=== PATIENT | female | born 1945 | race Caucasian/White ===

== ENCOUNTER → 2017-11-22 | Outpatient (CLI) | payer MEDICARE, OTHER ==
[~2017-11-22] MED LIST: ACET325T14 PO; ALBUTEROL INHALER PO; ALLO100T64 PO; ASCO1TAB4 PO; ASPI-496 PO; CALC-680 PO; CARV6.252 PO; CHLO473M PO; CHOL500015 PO; CHRO200T2 PO; FLAX1CAP PO; FOLI0.4T2 PO; HORSETAIL GRASS PO; HYDR25TA6 PO; LISI40TA PO; MONT10TA6 PO; NITR0.4T28 SL; OMNIPAQUE 350 MG/ML, 100ML BOTTLE ONE; PANT40TA5 PO; PRAV40TA2 PO; RANI150T4 PO; SELE200T17 PO; TURM500C4 PO; UBIQ100C3 PO; VITAMIN B12 PO; VITAMIN E PO
== END | disposition home or self-care (01) ==
LOC: RAD 12:38
PROVIDERS: ATTEND Thoracic Surgery (Cardiothoracic Vascular Surgery)
DX: I65.23 Occlusion and stenosis of bilateral carotid arteries (principal); Z95.1 Presence of aortocoronary bypass graft
CPT/HCPCS: 70496; 70498; Q9967

== ENCOUNTER 2017-11-24 03:57 | Inpatient (IN) | payer MEDICARE, OTHER ==
[2017-11-23 15:04] LABS: BASOPHILS # (AUTO) 0.01 x10^3/uL (0-0.1); BASOPHILS % (AUTO) 0 % (0-1); EOSINOPHILS # (AUTO) 0.11 x10^3/uL (0-0.4); EOSINOPHILS % (AUTO) 2 % (1-7); LYMPHOCYTES # (AUTO) 2.07 x10^3/uL (1-3.4); LYMPHOCYTES % (AUTO) 27 % (22-44); MD NO; MEAN CORPUSCULAR HEMOGLOBIN 34.4 pg (27.0-34.8); MEAN CORPUSCULAR HGB CONC 33.9 g/dL (32.4-35.8); MEAN CORPUSCULAR VOLUME 101.4 fL (80-100); MEAN PLATELET VOLUME 8.7 fL (7.4-10.4); MONOCYTES # (AUTO) 0.75 x10^3/uL (0.2-0.8); MONOCYTES % (AUTO) 10 % (2-9); NEUTROPHILS # (AUTO) 4.66 x10^3/uL (1.8-6.8); NEUTROPHILS % (AUTO) 61 % (42-75); PLATELET COUNT 234 x10^3/uL (130-400); RED BLOOD COUNT 4.61 x10^6/uL (3.82-5.3); RED CELL DISTRIBUTION WIDTH 13.5 % (9.6-15.2)
[2017-11-23 15:13] LABS: INTERNATIONAL NORMALIZED RATIO 1.04 (0.93-1.1); PROTHROMBIN TIME 10.7 Seconds (9.6-11.5)
[2017-11-23 15:21] LABS: ALANINE AMINOTRANSFERASE 28 U/L (12-78); ALBUMIN 3.9 g/dL (3.4-5.0); ANION GAP 9 mmol/L (5-15); CALCIUM 9.2 mg/dL (8.5-10.1); CHLORIDE 104 mmol/L (98-107); CREATININE 0.93 mg/dL (0.55-1.02)
[2017-11-23 15:21] LABS: MICROSCOPIC AUTO
[2017-11-23 15:23] LABS: ALKALINE PHOSPHATASE 82 U/L (45-117); BILIRUBIN,TOTAL 0.6 mg/dL (0.2-1.0); TOTAL PROTEIN 7.4 g/dL (6.4-8.2)
[2017-11-23 15:36] LABS: HEMOGLOBIN A1C 5.9 % (4.2-6.3)
[~2017-11-24] VITALS: Ht 160 cm; Wt 64.6 kg
[~2017-11-24 03:57] MED LIST changes: -OMNIPAQUE 350 MG/ML, 100ML BOTTLE ONE
[2017-11-24 04:11] VITALS: BP_SYST 151; BP_SYST 162; BP_DIAS 80; BP_DIAS 82
[2017-11-24] MEDS ORDERED: DO NOT GIVE MC SCH (04:30)
[2017-11-24] MEDS ORDERED: INSULIN LISPRO 100 UNITS/ML, PEN SQ-INSULIN SCH (04:30)
[2017-11-24] MEDS ORDERED: ACETAMINOPHEN 325 MG TABLET PO PRN ×2 (04:30→13:30)
[2017-11-24] MEDS ORDERED: CHLORHEXIDINE 15 ML BOTTLE MM SCH (04:30)
[2017-11-24] MEDS ORDERED: METOPROLOL TARTRATE 25 MG TABLET PO ONE (05:00)
[2017-11-24] MEDS ORDERED: PAPAVERINE 30 MG/ML, 2ML ONE (06:43)
[2017-11-24] MEDS ORDERED: HEPARIN 1,000 UNITS/ML, 10ML ONE (06:43)
[2017-11-24] MEDS ORDERED: MIDAZOLAM 10MG/2 ML ONE (07:20)
[2017-11-24] MEDS ORDERED: FENTANYL PF 250 MCG/5ML ONE ×5 (07:21→13:17)
[2017-11-24] MEDS ORDERED: VANCOMYCIN 700 MG in SODIUM CHLORIDE 0.9% 250 ML IV PRN (07:30)
[2017-11-24] MEDS ORDERED: ALBUMIN HUMAN 5% 500 ML IV PRN (07:30)
[2017-11-24] MEDS ORDERED: CEFUROXIME 1.5 GM in SODIUM CHLORIDE 0.9% 50 ML IVPB PRN (07:30)
[2017-11-24] MEDS ORDERED: REGULAR INSULIN 62.5 UNITS in SODIUM CHLORIDE 0.9% 249.375 ML IV PRN ×2 (07:30→13:22)
[2017-11-24] MEDS ORDERED: POTASSIUM CHLORIDE 80 MEQ, SODIUM BICARBONATE 8.4% 10 MEQ, MAGNESIUM SULFATE 0.5 GM, LI... IV PRN (07:30)
[2017-11-24] MEDS ORDERED: EPINEPHRINE 2 MG in SODIUM CHLORIDE 0.9% 248 ML IV SCH (07:30)
[2017-11-24] MEDS ORDERED: PHENYLEPHRINE 10 MG in SODIUM CHLORIDE 0.9% 249 ML IV PRN ×2 (07:30→13:22)
[2017-11-24] MEDS ORDERED: MANNITOL PMX 20% 500 ML IVPB PRN (07:30)
[2017-11-24] MEDS ORDERED: DEXMEDETOMIDINE 200 MCG in SODIUM CHLORIDE 0.9% 48 ML IV SCH (07:30)
[2017-11-24] MEDS ORDERED: HEPARIN 1,000 UNITS/ML, 10ML IV ONE (08:58)
[2017-11-24] MEDS ORDERED: PAPAVERINE 30 MG/ML, 2ML IVPush ONE (08:58)
[2017-11-24] MEDS ORDERED: SODIUM CHLORIDE FLUSH 10ML SYR IVF SCH (09:00)
[2017-11-24] MEDS: DOCUSATE 100 MG CAPSULE PO SCH ×2 (09:00→19:52)
[2017-11-24] MEDS ORDERED: MUPIROCIN OINT 2%, 22GM TP SCH (09:00)
[2017-11-24] MEDS ORDERED: EPINEPHRINE 1 MG/ML, 1ML ONE (10:48)
[2017-11-24] MEDS ORDERED: ROCURONIUM 10 MG/ML,10ML ONE (10:48)
[2017-11-24] MEDS ORDERED: PROPOFOL 10 MG/ML, 20ML ONE (10:48)
[2017-11-24] MEDS ORDERED: PHENYLEPHRINE 10 MG/ML ONE (10:49)
[2017-11-24] MEDS ORDERED: NITROGLYCERIN/D5W PMX 250 ML ONE (11:34)
[2017-11-24] MEDS ORDERED: SODIUM CHLORIDE 0.9% 1,000 ML IV PRN (13:22)
[2017-11-24] MEDS ORDERED: DEXMEDETOMIDINE 200 MCG in SODIUM CHLORIDE 0.9% 48 ML IV PRN (13:22)
[2017-11-24] MEDS ORDERED: NITROGLYCERIN/D5W PMX 240 ML IV PRN (13:22)
[2017-11-24] MEDS ORDERED: DOBUTAMINE 250 MG in SODIUM CHLORIDE 0.9% 230 ML IV PRN (13:22)
[2017-11-24] MEDS ORDERED: SODIUM BICARB 8.4%, 50ML SYRINGE IV PRN (13:30)
[2017-11-24] MEDS ORDERED: GLUCAGON 1 MG IM PRN (13:30)
[2017-11-24] MEDS ORDERED: EPINEPHRINE 2 MG in SODIUM CHLORIDE 0.9% 248 ML IV PRN (13:30)
[2017-11-24] MEDS: KSCALE TO 4.5 IV SCH ×2 (13:30→19:30)
[2017-11-24] MEDS ORDERED: MAGNESIUM SULFATE 1 GM in SODIUM CHLORIDE 0.9% 50 ML IVPB SCH (13:30)
[2017-11-24] MEDS ORDERED: BISACODYL 5 MG EC TABLET PO PRN (13:30)
[2017-11-24] MEDS ORDERED: PROCHLORPERAZINE 5 MG/ML, 2ML IVPush PRN (13:30)
[2017-11-24] MEDS ORDERED: MIDAZOLAM 1 MG/ML, 5ML IVPush PRN (13:30)
[2017-11-24] MEDS ORDERED: INSULIN REGULAR 100 UNITS/ML, 3ML VIAL IVPush PRN (13:30)
[2017-11-24] MEDS: CHLORHEXIDINE 15 ML BOTTLE MM SCH (13:30)
[2017-11-24] MEDS ORDERED: ACETAMINOPHEN 650 MG SUPP PR PRN (13:30)
[2017-11-24] MEDS ORDERED: DEXTROSE 4 GM TAB.CHEW PO PRN (13:30)
[2017-11-24] MEDS ORDERED: BISACODYL 10 MG SUPP PR PRN (13:30)
[2017-11-24] MEDS ORDERED: DEXTROSE 50%, 50ML SYRINGE IVPush PRN (13:30)
[2017-11-24] MEDS ORDERED: morphine SULFATE 10 MG/ML, 1ML IVPush PRN (13:30)
[2017-11-24] MEDS ORDERED: SODIUM BICARB 8.4%, 50ML SYRINGE ONE (13:46)
[2017-11-24] MEDS ORDERED: LIDOCAINE 2% 100MG/5ML SYRINGE ONE (13:47)
[2017-11-24] MEDS ORDERED: ALBUMIN HUMAN 25% 50 ML ONE (13:47)
[2017-11-24] MEDS ORDERED: CALCIUM CHLORIDE 10%, 10ML SYR ONE (13:47)
[2017-11-24] MEDS ORDERED: HEPARIN 1,000 UNITS/ML, 30ML ONE (13:47)
[2017-11-24] MEDS ORDERED: MANNITOL 0.25 GM/ML, 50ML ONE (13:47)
[2017-11-24 14:02] LABS: GLUCOSE BY BLOOD GAS ANALYZER 82 mg/dL (70-110); HEMOGLOBIN BY BLOOD GAS ANALYZ 12.5 g/dL (14.0-18.0); POTASSIUM BY BLOOD GAS ANALYZR 2.9 mmol/L (3.6-5.5)
[2017-11-24] MEDS: LACTATED RINGERS 1,000 ML IV PRN ×4 (14:19→16:52)
[2017-11-24] MEDS ORDERED: POTASSIUM CHLORIDE 30 MEQ in SODIUM CHLORIDE 0.9% 100 ML IV ONE (15:00)
[2017-11-24] MEDS: INSULIN LISPRO 100 UNITS/ML, PEN SQ-INSULIN SCH ×2 (15:10→19:54)
[2017-11-24] MEDS ORDERED: DEXMEDETOMIDINE 400 MCG in SODIUM CHLORIDE 0.9% 96 ML IV PRN (15:41)
[2017-11-24] MEDS ORDERED: CALCIUM CHLORIDE 13.6 MEQ in SODIUM CHLORIDE 0.9% 100 ML IV ONE (16:30)
[2017-11-24] MEDS ORDERED: VANCOMYCIN 700 MG in SODIUM CHLORIDE 0.9% 250 ML IVPB SCH (19:00)
[2017-11-24] MEDS: CEFUROXIME 1.5 GM in SODIUM CHLORIDE 0.9% 50 ML IVPB SCH (19:50)
[2017-11-24] MEDS: VANCOMYCIN 700 MG in SODIUM CHLORIDE 0.9% 100 ML IVPB SCH (19:50)
[2017-11-24] MEDS: SODIUM CHLORIDE FLUSH 10ML SYR IVF SCH (19:54)
[2017-11-24] MEDS: MUPIROCIN OINT 2%, 22GM NAS SCH (19:54)
[2017-11-24] MEDS ORDERED: POTASSIUM CHLORIDE PMX 100 ML IV ONE (20:00)
[2017-11-24] MEDS: HYDROcodone/APAP 5/325 TABLET PO PRN (21:10)
[2017-11-24] MEDS: OXYcodone IR 5MG TABLET PO PRN (22:37)
[2017-11-24] MEDS ORDERED: MIDAZOLAM 1 MG/ML, 2ML ONE (22:45)
[2017-11-25] MEDS: CHLORHEXIDINE 15 ML BOTTLE MM SCH ×3 (01:01→23:30)
[2017-11-25 01:16] LABS: INTERNATIONAL NORMALIZED RATIO 1.03 (0.93-1.1); PROTHROMBIN TIME 10.6 Seconds (9.6-11.5)
[2017-11-25 01:18] LABS: ALBUMIN 2.6 g/dL (3.4-5.0); ANION GAP 11 mmol/L (5-15); CALCIUM 7.8 mg/dL (8.5-10.1); CHLORIDE 116 mmol/L (98-107); CREATININE 0.75 mg/dL (0.55-1.02)
[2017-11-25 01:29] LABS: BASOPHILS # (AUTO) 0.02 x10^3/uL (0-0.1); BASOPHILS % (AUTO) 0 % (0-1); EOSINOPHILS % (AUTO) 0 % (1-7); LYMPHOCYTES # (AUTO) 0.88 x10^3/uL (1-3.4); LYMPHOCYTES % (AUTO) 6 % (22-44); MD NO; MEAN CORPUSCULAR HEMOGLOBIN 33.2 pg (27.0-34.8); MEAN CORPUSCULAR HGB CONC 34.1 g/dL (32.4-35.8); MEAN CORPUSCULAR VOLUME 97.4 fL (80-100); MEAN PLATELET VOLUME 8.5 fL (7.4-10.4); MONOCYTES # (AUTO) 1.12 x10^3/uL (0.2-0.8); MONOCYTES % (AUTO) 8 % (2-9); NEUTROPHILS # (AUTO) 12.61 x10^3/uL (1.8-6.8); NEUTROPHILS % (AUTO) 86 % (42-75); PLATELET COUNT 187 x10^3/uL (130-400); RED BLOOD COUNT 3.94 x10^6/uL (3.82-5.3); RED CELL DISTRIBUTION WIDTH 15.7 % (9.6-15.2)
[2017-11-25] MEDS: KSCALE TO 4.5 IV SCH ×2 (01:30→07:30)
[2017-11-25] MEDS ORDERED: POTASSIUM CHLORIDE PMX 100 ML IV ONE ×2 (02:00→10:00)
[2017-11-25] MEDS: HYDROcodone/APAP 5/325 TABLET PO PRN ×3 (02:05→21:05)
[2017-11-25 04:00] VITALS: BP 110/45
[2017-11-25] MEDS: OXYcodone IR 5MG TABLET PO PRN (04:34)
[2017-11-25] MEDS: CEFUROXIME 1.5 GM in SODIUM CHLORIDE 0.9% 50 ML IVPB SCH (07:32)
[2017-11-25] MEDS: VANCOMYCIN 700 MG in SODIUM CHLORIDE 0.9% 100 ML IVPB SCH (07:32)
[2017-11-25] MEDS: METOPROLOL TARTRATE 25 MG TABLET PO/NG SCH ×2 (09:00→20:04)
[2017-11-25] MEDS: INSULIN LISPRO 100 UNITS/ML, PEN SQ-INSULIN SCH ×4 (10:06→20:04)
[2017-11-25] MEDS: SODIUM CHLORIDE FLUSH 10ML SYR IVF SCH ×2 (11:48→20:02)
[2017-11-25] MEDS: MUPIROCIN OINT 2%, 22GM NAS SCH ×2 (11:48→20:04)
[2017-11-25] MEDS: DOCUSATE 100 MG CAPSULE PO SCH ×2 (11:48→20:04)
[2017-11-25] MEDS: ASPIRIN 81 MG TABLET EC PO SCH (11:48)
[2017-11-25] MEDS ORDERED: PROPOFOL 100 ML IV ONE (13:31)
[2017-11-25] MEDS: ONDANSETRON 2MG/ML, 2ML IVPush PRN (13:52)
[2017-11-26] MEDS: HYDROcodone/APAP 5/325 TABLET PO PRN (02:10)
[2017-11-26 04:25] LABS: BASOPHILS # (AUTO) 0.01 x10^3/uL (0-0.1); BASOPHILS % (AUTO) 0 % (0-1); EOSINOPHILS # (AUTO) 0.02 x10^3/uL (0-0.4); EOSINOPHILS % (AUTO) 0 % (1-7); LYMPHOCYTES % (AUTO) 9 % (22-44); MD NO; MEAN CORPUSCULAR HEMOGLOBIN 33.4 pg (27.0-34.8); MEAN CORPUSCULAR HGB CONC 33.7 g/dL (32.4-35.8); MEAN CORPUSCULAR VOLUME 99.2 fL (80-100); MEAN PLATELET VOLUME 8.8 fL (7.4-10.4); MONOCYTES # (AUTO) 1.38 x10^3/uL (0.2-0.8); MONOCYTES % (AUTO) 10 % (2-9); NEUTROPHILS # (AUTO) 11.26 x10^3/uL (1.8-6.8); NEUTROPHILS % (AUTO) 81 % (42-75); PLATELET COUNT 120 x10^3/uL (130-400); RED BLOOD COUNT 3.37 x10^6/uL (3.82-5.3)
[2017-11-26 04:26] LABS: INTERNATIONAL NORMALIZED RATIO 0.97 (0.93-1.1)
[2017-11-26 04:29] LABS: ANION GAP 4 mmol/L (5-15); CALCIUM 7.9 mg/dL (8.5-10.1); CHLORIDE 114 mmol/L (98-107); CREATININE 1.13 mg/dL (0.55-1.02)
[2017-11-26 04:30] VITALS: BP 122/58
[2017-11-26] MEDS: INSULIN LISPRO 100 UNITS/ML, PEN SQ-INSULIN SCH ×4 (07:00→21:20)
[2017-11-26] MEDS: ENOXAPARIN 40 MG/0.4 ML SQ SCH (07:57)
[2017-11-26] MEDS: METOPROLOL TARTRATE 25 MG TABLET PO/NG SCH ×2 (08:17→21:21)
[2017-11-26] MEDS: DOCUSATE 100 MG CAPSULE PO SCH ×2 (08:17→21:21)
[2017-11-26] MEDS: MUPIROCIN OINT 2%, 22GM NAS SCH ×2 (08:17→22:03)
[2017-11-26] MEDS: ASPIRIN 81 MG TABLET EC PO SCH (08:17)
[2017-11-26] MEDS: SODIUM CHLORIDE FLUSH 10ML SYR IVF SCH ×2 (08:17→21:21)
[2017-11-26] MEDS: CHLORHEXIDINE 15 ML BOTTLE MM SCH (11:21)
[2017-11-26] MEDS ORDERED: FUROSEMIDE 20 MG/2 ML ONE (13:26)
[2017-11-26] MEDS ORDERED: FUROSEMIDE 20 MG/2 ML IV ONE (13:30)
[2017-11-26 20:48] VITALS: BP 142/73
[2017-11-27] MEDS: CHLORHEXIDINE 15 ML BOTTLE MM SCH ×3 (00:50→22:39)
[2017-11-27] MEDS: HYDROcodone/APAP 5/325 TABLET PO PRN ×2 (01:00→13:23)
[2017-11-27 01:04] VITALS: BP 149/82
[2017-11-27 05:24] LABS: ANION GAP 4 mmol/L (5-15); CALCIUM 8.1 mg/dL (8.5-10.1); CHLORIDE 109 mmol/L (98-107); CREATININE 1.05 mg/dL (0.55-1.02)
[2017-11-27] MEDS: INSULIN LISPRO 100 UNITS/ML, PEN SQ-INSULIN SCH ×4 (07:00→20:33)
[2017-11-27] MEDS: ENOXAPARIN 40 MG/0.4 ML SQ SCH (07:09)
[2017-11-27] MEDS: DOCUSATE 100 MG CAPSULE PO SCH ×2 (07:49→20:32)
[2017-11-27] MEDS: MUPIROCIN OINT 2%, 22GM NAS SCH ×2 (07:49→20:32)
[2017-11-27] MEDS: ASPIRIN 81 MG TABLET EC PO SCH (07:49)
[2017-11-27] MEDS: METOPROLOL TARTRATE 25 MG TABLET PO/NG SCH ×2 (07:50→20:32)
[2017-11-27] MEDS: SODIUM CHLORIDE FLUSH 10ML SYR IVF SCH ×2 (07:50→20:33)
[2017-11-27] MEDS: CLOPIDOGREL 75 MG TABLET PO SCH (07:50)
[2017-11-27 07:54] VITALS: BP 149/85
[2017-11-27 13:50] VITALS: BP 138/82
[2017-11-27 20:10] VITALS: BP 124/75
[2017-11-27] MEDS: ONDANSETRON 2MG/ML, 2ML IVPush PRN (22:38)
[2017-11-28 01:40] VITALS: BP 149/81
[2017-11-28] MEDS: HYDROcodone/APAP 5/325 TABLET PO PRN ×2 (05:19→14:50)
[2017-11-28 05:46] LABS: CHLORIDE 110 mmol/L (98-107)
[2017-11-28 05:51] LABS: ANION GAP 7 mmol/L (5-15); CALCIUM 8.4 mg/dL (8.5-10.1); CREATININE 0.77 mg/dL (0.55-1.02)
[2017-11-28] MEDS: INSULIN LISPRO 100 UNITS/ML, PEN SQ-INSULIN SCH ×4 (07:00→21:13)
[2017-11-28 08:15] VITALS: BP 147/74
[2017-11-28] MEDS: CLOPIDOGREL 75 MG TABLET PO SCH (09:00)
[2017-11-28] MEDS: SODIUM CHLORIDE FLUSH 10ML SYR IVF SCH ×2 (09:25→21:08)
[2017-11-28] MEDS: ENOXAPARIN 40 MG/0.4 ML SQ SCH (09:26)
[2017-11-28] MEDS: ASPIRIN 81 MG TABLET EC PO SCH (09:26)
[2017-11-28] MEDS: METOPROLOL TARTRATE 25 MG TABLET PO/NG SCH ×2 (09:26→21:07)
[2017-11-28] MEDS: MUPIROCIN OINT 2%, 22GM NAS SCH ×2 (09:26→21:07)
[2017-11-28] MEDS: DOCUSATE 100 MG CAPSULE PO SCH ×2 (09:27→21:07)
[2017-11-28] MEDS: CHLORHEXIDINE 15 ML BOTTLE MM SCH ×2 (12:22→23:44)
[2017-11-28 14:40] VITALS: BP 176/73
[2017-11-28] MEDS: ONDANSETRON 2MG/ML, 2ML IVPush PRN (14:50)
[2017-11-28 16:00] VITALS: BP 155/70
[2017-11-28 21:00] VITALS: BP 158/78
[2017-11-29 02:49] VITALS: BP 170/95
[2017-11-29] MEDS ORDERED: AMIODARONE 150 MG in DEXTROSE 5% 100 ML IVPB ONE (03:04)
[2017-11-29] MEDS ORDERED: AMIODARONE 900 MG in DEXTROSE 5% 482 ML IV PRN (03:04)
[2017-11-29] MEDS ORDERED: FILTER 0.22 MICRON IV PRN (03:30)
[2017-11-29 03:35] VITALS: BP 142/84
[2017-11-29] MEDS: ONDANSETRON 2MG/ML, 2ML IVPush PRN ×2 (04:42→08:08)
[2017-11-29 06:00] LABS: ANION GAP 7 mmol/L (5-15); CALCIUM 8.3 mg/dL (8.5-10.1); CHLORIDE 109 mmol/L (98-107); CREATININE 0.78 mg/dL (0.55-1.02)
[2017-11-29] MEDS: INSULIN LISPRO 100 UNITS/ML, PEN SQ-INSULIN SCH ×4 (07:00→19:56)
[2017-11-29 08:10] VITALS: BP 179/82
[2017-11-29] MEDS ORDERED: LISINOPRIL 5 MG TABLET PO SCH (09:00)
[2017-11-29] MEDS: MUPIROCIN OINT 2%, 22GM NAS SCH (09:00)
[2017-11-29] MEDS: DOCUSATE 100 MG CAPSULE PO SCH ×2 (09:47→19:50)
[2017-11-29] MEDS: SODIUM CHLORIDE FLUSH 10ML SYR IVF SCH ×2 (09:47→19:52)
[2017-11-29] MEDS: CLOPIDOGREL 75 MG TABLET PO SCH (09:48)
[2017-11-29] MEDS: METOPROLOL TARTRATE 25 MG TABLET PO/NG SCH ×2 (09:48→19:51)
[2017-11-29] MEDS: ASPIRIN 81 MG TABLET EC PO SCH (09:48)
[2017-11-29] MEDS: AMIODARONE 200 MG TABLET PO SCH ×2 (09:48→19:51)
[2017-11-29] MEDS: ENOXAPARIN 40 MG/0.4 ML SQ SCH (09:49)
[2017-11-29] MEDS: HYDROcodone/APAP 5/325 TABLET PO PRN ×2 (13:05→17:35)
[2017-11-29] MEDS: CHLORHEXIDINE 15 ML BOTTLE MM SCH (13:10)
[2017-11-29 14:35] VITALS: BP 142/81
[2017-11-29 20:00] VITALS: BP 161/82
[2017-11-30 00:29] VITALS: BP 169/76
[2017-11-30] MEDS: HYDROcodone/APAP 5/325 TABLET PO PRN ×2 (00:32→08:31)
[2017-11-30] MEDS: CHLORHEXIDINE 15 ML BOTTLE MM SCH (00:32)
[2017-11-30 05:56] LABS: CHLORIDE 108 mmol/L (98-107)
[2017-11-30 06:03] LABS: ANION GAP 4 mmol/L (5-15); CALCIUM 8.5 mg/dL (8.5-10.1); CREATININE 0.79 mg/dL (0.55-1.02)
[2017-11-30] MEDS ORDERED: HYDR-3240 PO (07:55)
[2017-11-30] MEDS ORDERED: AMIO200T42 PO (07:55)
[2017-11-30] MEDS ORDERED: DOCU-131 PO (07:55)
[2017-11-30] MEDS ORDERED: LISI-167 PO (07:55)
[2017-11-30] MEDS ORDERED: CLOP75TA PO (07:55)
[2017-11-30 08:21] VITALS: BP 156/61
[2017-11-30] MEDS: AMIODARONE 200 MG TABLET PO SCH (08:31)
[2017-11-30] MEDS: ASPIRIN 81 MG TABLET EC PO SCH (08:31)
[2017-11-30] MEDS: DOCUSATE 100 MG CAPSULE PO SCH (08:32)
[2017-11-30] MEDS: CLOPIDOGREL 75 MG TABLET PO SCH (08:32)
[2017-11-30] MEDS: METOPROLOL TARTRATE 25 MG TABLET PO/NG SCH (08:33)
[2017-11-30] MEDS: SODIUM CHLORIDE FLUSH 10ML SYR IVF SCH (08:34)
[2017-11-30] MEDS ORDERED: LISINOPRIL 10 MG TABLET PO SCH (09:00)
[2017-11-30] MEDS: ENOXAPARIN 40 MG/0.4 ML SQ SCH (10:47)
[2017-11-30 14:32] VITALS: BP 168/77
[2017-12-03] MEDS ORDERED: ALLO300T PO (17:40)
[2017-12-03] MEDS ORDERED: TURM500C4 PO (17:40)
[2017-12-03] MEDS ORDERED: CHROMIUM PICOLINATE (18:07)
[2017-12-03] MEDS ORDERED: UBIQ100C3 PO (18:07)
[2017-12-03] MEDS ORDERED: CYAN500T18 PO (18:07)
[2017-12-03] MEDS ORDERED: [UNRECOGNIZED DRUG - OTHER] PO (18:07)
[2017-12-03] MEDS ORDERED: ASCO500T6 PO (18:07)
[2017-12-03] MEDS ORDERED: CHLO1LIQ PO (18:07)
[2017-12-03] MEDS ORDERED: VITA100C8 PO (18:07)
[2017-12-03] MEDS ORDERED: ALBU2TAB PO (18:07)
[2017-12-03] MEDS ORDERED: ASPI-515 PO (18:07)
[2017-12-03] MEDS ORDERED: FOLI0.4T2 PO (18:07)
[2017-12-03] MEDS ORDERED: CALC500P3 PO (18:07)
[2017-12-03] MEDS ORDERED: METH4TAB7 PO (18:07)
[2017-12-03] MEDS ORDERED: HYDR25TA6 PO (18:07)
[2017-12-03] MEDS ORDERED: CHOL100011 PO (18:07)
[2017-12-03] MEDS ORDERED: ALLO1POW PO (18:07)
[2017-12-03] MEDS ORDERED: NIAC500T10 PO (18:07)
[2017-12-03] MEDS ORDERED: PRAV40TA2 PO (18:07)
[2017-12-03] MEDS ORDERED: MONT10TA9 PO (18:07)
[2017-12-03] MEDS ORDERED: LISI40TA PO (18:07)
[2017-12-03] MEDS ORDERED: [UNRECOGNIZED DRUG - OTHER] (18:07)
[2017-12-03] MEDS ORDERED: SELE100T PO (18:52)
[2017-12-03] MEDS ORDERED: ALLO100T30 PO (19:22)
[2017-12-03] MEDS ORDERED: LISI-167 PO (19:22)
[2017-12-03] MEDS ORDERED: CALC-680 PO ×2 (19:22)
== END 2017-11-30 15:47 | disposition home health service (06) | DRG 235 ==
LOC: 5SO 03:57 → CCU 07:12 → CSU 08:13 → 5SO 11-26 15:51 → DCLOUNGE 11-30 15:47
PROVIDERS: ADMIT Thoracic Surgery (Cardiothoracic Vascular Surgery); ATTEND Thoracic Surgery (Cardiothoracic Vascular Surgery)
PROC: 06BQ4ZZ Excision of Left Saphenous Vein, Percutaneous Endoscopic Approach (ICD-10-PCS; 2017-11-24)
PROC: 06BP4ZZ Excision of Right Saphenous Vein, Percutaneous Endoscopic Approach (ICD-10-PCS; 2017-11-24)
PROC: 021209W Bypass Coronary Artery, Three Arteries from Aorta with Autologous Venous Tissue, Open Approach (ICD-10-PCS; 2017-11-24)
PROC: 5A1221Z Performance of Cardiac Output, Continuous (ICD-10-PCS; 2017-11-24)
PROC: 30233M1 Transfusion of Nonautologous Plasma Cryoprecipitate into Peripheral Vein, Percutaneous Approach (ICD-10-PCS; 2017-11-24)
PROC: 30233N1 Transfusion of Nonautologous Red Blood Cells into Peripheral Vein, Percutaneous Approach (ICD-10-PCS; 2017-11-24)
PROC: 30233R1 Transfusion of Nonautologous Platelets into Peripheral Vein, Percutaneous Approach (ICD-10-PCS; 2017-11-24)
PROC: 5A1935Z Respiratory Ventilation, Less than 24 Consecutive Hours (ICD-10-PCS; 2017-11-24)
PROC: 02HV33Z Insertion of Infusion Device into Superior Vena Cava, Percutaneous Approach (ICD-10-PCS; 2017-11-24)
PROC: B548ZZA Ultrasonography of Superior Vena Cava, Guidance (ICD-10-PCS; 2017-11-24)
PROC: 02100Z9 Bypass Coronary Artery, One Artery from Left Internal Mammary, Open Approach (ICD-10-PCS; principal; 2017-11-24 07:30)
DX: I25.10 Atherosclerotic heart disease of native coronary artery without angina pectoris (principal); J96.00 Acute respiratory failure, unspecified whether with hypoxia or hypercapnia; J90 Pleural effusion, not elsewhere classified; J98.11 Atelectasis; I48.0 Paroxysmal atrial fibrillation; I73.9 Peripheral vascular disease, unspecified; E78.5 Hyperlipidemia, unspecified; I10 Essential (primary) hypertension; K21.9 Gastro-esophageal reflux disease without esophagitis; Z87.891 Personal history of nicotine dependence
CPT/HCPCS: 36415; 36600; 71045; 71046; 80048; 80053; 81001; 82040; 82330; 82800; 82803; 82810; 82947; 82962; 83036; 83735; 84132; 84295; 85014; 85018; 85025; 85049; 85347; 85610; 85730; 86850; 86870; 86900; 86922; 86923; 87081; 93005; 93312; 93321; 93325; 93970; 94002; 94003; J0171; J0697; J1644; J1650; J1815; J2250; J2405; J2704; J3010; J3370; J3475; J3480; J3490; P9045; P9047; C1751; C1760; J0282; J0780; J1940; J2150; J2270; J2370; J2440; J7050; J7060; J7120; P9012; P9016; P9035